=== PATIENT | male | born 1965 | race Caucasian/White ===

== ENCOUNTER → 2023-07-24 08:14 | Outpatient (REF) | payer BC, SELFPAY | LOC: HWRAD 08:14 | PROVIDERS: ATTENDING PHYSICIAN Otolaryngology; FAMILY PHYSICIAN Physician Assistant | DX: J32.0 Chronic maxillary sinusitis (principal) | CPT/HCPCS: 70486 ==

== ENCOUNTER → 2023-10-06 16:58 | Outpatient (REF) | payer BC, SELFPAY | LOC: CLAB 16:58 | PROVIDERS: ATTENDING PHYSICIAN Otolaryngology | DX: J01.90 Acute sinusitis, unspecified (principal) | CPT/HCPCS: 88304; 88311 ==

== ENCOUNTER 2024-01-05 05:47 | Emergency (ER) | payer BC, SELFPAY ==
[2024-01-05 05:48] VITALS: BP 122/70
--- NOTE | 2024-01-05 06:23 | ED.GENMED ---
History of Present Illness
General
Chief Complaint: DVT/Possible Blood Clot
Source: patient
Exam Limitations: none
Time Seen by Provider: 01/05/24 06:12
Nursing documentation reviewed up to this point in time: agreed with
History of Present Illness
History of Present Illness:
58-year-old male presents with left calf pain onset a few weeks ago he is in a garbage truck driver frequently, he does exercises and stretches his calf frequently has had a history of DVT and PE, no chest pain no shortness of breath, states when he had
his DVT and PE he had extensive workup told there was no cause for his blood work, had been on anticoagulation but stopped has chronic pain syndrome, uses oxycodone and Motrin, has chronic swelling of the left lower extremity compared to the right
took his pain meds today as scheduled
Past History
Past History
ED Past Medical History: Other (Chronic pain syndrome, osteoarthritis, low back pain DVT PE previous)
Social History
Tobacco: Non-smoker
Alcohol: None
Drug: None
Personal:
Living: with family
Employment: Employed
Review of Systems
Review of Systems
All Other Systems: Not applicable
Constitutional: Denies fever or fatigue
EENT: Reports no symptoms
Respiratory: Denies cough or trouble breathing
Cardiac: Denies chest pain
Musculoskeletal: Reports muscle stiffness and edema
Skin: Reports no symptoms
Phy Exam
Physical Exam
Physical Exam:
Physical Exam
General: no apparent distress, not acutely ill
Neck: No jaundice
Heart: s1/s2 regular rate and rhythm, no murmur. equal radial pulses.
Lungs: no acute respiratory distress. clear bilaterally
Abdomen: Nontender
Neuro: alert and oriented. no focal neurological deficits
Skin: no rash
Psychiatric: cooperative
Extremities: Slight edema left calf compared to right no cords,
Course
Orders/Labs/Results
Orders:
Orders
01/05/24 06:21
US Periph Venous LOWER Ext LT Urgent
Comment:
Reason For Exam: swelling
01/05/24 06:25
Complete Blood Count/With Diff Urgent
Comprehensive Metabolic Panel Urgent
Magnesium Urgent
01/05/24 08:03
Rivaroxaban [Xarelto] 15 mg PO NOW STA
Abnormal Lab Results
01/05/24
06:25
RBC 4.15 L 10^6/uL
(4.70-6.10)
Hct 38.3 L %
(39.0-52.0)
MCH 32.8 H pg
(27.0-31.0)
Monocytes % 9.8 H %
(1.7-9.3)
BUN 26 H mg/dl
(9-20)
Total Protein 6.2 L g/dl
(6.3-8.2)
01/05/24 06:25
01/05/24 06:25
Vital Signs
Initial and Last Documented VS:
Initial Vital Signs
Temp Pulse Resp BP Pulse Ox
98.1 F 66 22 122/70 100
01/05/24 05:48 01/05/24 05:48 01/05/24 05:48 01/05/24 05:48 01/05/24 05:48
Last Documented Vital Signs
Temp Pulse Resp BP Pulse Ox
98.1 F 66 22 122/70 100
01/05/24 05:48 01/05/24 05:48 01/05/24 05:48 01/05/24 05:48 01/05/24 05:48
MDM/Problems Addressed
Differential Diagnosis Includes:
DVT, electrolyte abnormality no signs of arterial insufficiency neuropathy is a possibility
MDM/Problems Addressed:
Left calf pain
Chronic conditions affecting care:
Left calf swelling prior DVT PE
Acute Exacerbation and/or Progression of Chronic Illness:
Prior DVT PE
*Radiology
Radiology exam reviewed: other ([facility] text report)
*Pulse Oximetry
Patient hypoxic: no
*Sales Mgr Interpretation
Rate: Sales Mgr- N/A
*Critical Care Note
Total Time (30-74mins, 75-104mins- exclusive of procedures): Not Applicable
Update Note
Update Note:
Update [facility] text radiology positive popliteal DVT
Discussed with patient he was on Xarelto previously,
Up-to-date reviewed, dosing reviewed patient told to limit his NSAID use
Previously seen at [facility]
ED Attending Note
-
Portions of this chart may have been created with voice recognition software.� Occasional wrong word or��sound alike� substitutions may have occurred due to the inherent limitations of voice recognition software.
Discharge Plan
Departure
Patient Disposition: Home (Routine Discharge)
Date of Disposition: 01/05/24
Time of Disposition: 08:04
Patient with high blood pressure during this ER visit?: No
Condition: Good
Discharge Problem:
DVT (deep venous thrombosis)
Instructions: Deep Vein Thrombosis (Blood Clots in the Legs) (DC)
Prescriptions:
No Action
alprazolam [Xanax] 0.5 mg Tablet
0.5 mg PO PRN PRN (Reason: anxiety)
Patient Comments:
pt says he sometimes takes 1/4 or 1/2 tablet, then can take another dose 6 hrs later if needed
escitalopram oxalate [Lexapro] 20 mg Tablet
30 mg PO DAILY
Referrals:
Samia Feldman PA-C [Family Provider] - Next open appointment
Naima Francis MD [Active] - Next open appointment
Interventions
Interventions:
*Risk Screen - Suicide Last Done: 01/05/24 05:48
*General Assessment Last Done: 01/05/24 06:26
*Neglect/Abuse Screening Last Done: 01/05/24 05:48
ED- Fall Risk Assessment Last Done: 01/05/24 06:34
*ED COVID-19 Vaccine History Last Done: 01/05/24 06:26
ED- Cardiac Assessment Last Done: 01/05/24 06:34
ED- Pulmonary Assessment Last Done: 01/05/24 06:34
ED-Peripheral Vascular Assessment Last Done: 01/05/24 06:34
ED-Skin Assessment Last Done: 01/05/24 06:34
Discharge Date and Time
Print Language: PASHTO
[2024-01-05 06:26] VITALS: BMI 31.6
--- NOTE | 2024-01-05 06:38 | EDRN ---
Pt has been having pain L lateral ankle up L lateral lower leg for 3 weeks. Pt says pain gets better during the day. 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 Pt has hx of dvts in same leg and PEs. Pt decided
to come in for evaluation this morning because he said the pain was excruciating. Pt denies cp, sob, fever/chills/cough.
[2024-01-05 06:39] LABS: % Basophils 0.5 % (0-2); % Eosinophils 1.9 % (0-6); % Immature Granulocytes 0.3 % (0-0.5); % Lymphocytes 24.2 % (20.5-51.1); % Monocytes 9.8 % (1.7-9.3); % Neutrophils 63.3 % (42.2-75.2); Absolute Eosinophils 0.1 10^3/uL (0-0.7); Absolute Lymphocytes 1.4 10^3/uL (1.2-3.4); Absolute Monocytes 0.6 10^3/uL (0.1-0.6); Absolute Neutrophils 3.7 10^3/uL (1.4-6.5); Hematocrit 38.3 % (39.0-52.0); Hemoglobin 13.6 g/dL (13.0-18.0); Mean Corp Hgb Conc. 35.5 g/dL (33.0-37.0); Mean Corpuscular Hgb 32.8 pg (27.0-31.0); Mean Corpuscular Volume 92.3 fL (80.0-94.0); Mean Platelet Volume 8.8 fL (7.4-10.4); Nucleated Red Blood Cells % 0 % (-); Platelet Count 167 10^3/uL (130-400); Red Blood Cell Count 4.15 10^6/uL (4.70-6.10); Red Cell Dist. Width 12.1 % (11.5-14.5); White Blood Cell Count 5.9 10^3/uL (4.8-10.8)
[2024-01-05 07:06] LABS: ALT (SGPT) 21 U/L (0-50); AST (SGOT) 30 U/L (17-59); Albumin 4.1 g/dl (3.5-5.0); Alkaline Phosphatase 53 U/L (38-126); Blood Urea Nitrogen 26 mg/dl (9-20); Calcium 9.2 mg/dl (8.4-10.2); Carbon Dioxide 29 mmol/L (22-30); Chloride 101 mmol/L (98-107); Estimated Creatinine Clearance 103 ml/min; Glucose 98 mg/dl (70-99); Magnesium 1.8 mg/dl (1.6-2.3); Potassium 4.1 mmol/L (3.5-5.1); Sodium 135 mmol/L (135-145); Total Bilirubin 0.5 mg/dl (0.2-1.3); Total Protein 6.2 g/dl (6.3-8.2); eGFR > 60.00
[2024-01-05] MEDS: XARELTO 15 MG PO (08:09)
== END 2024-01-05 08:12 | disposition home or self-care (01) ==
LOC: EMR 05:47
PROVIDERS: EMERGENCY PHYSICIAN Emergency Medicine; FAMILY PHYSICIAN Physician Assistant
DX: I82.432 Acute embolism and thrombosis of left popliteal vein (principal); Z86.711 Personal history of pulmonary embolism; Z86.718 Personal history of other venous thrombosis and embolism
CPT/HCPCS: 99284; 80053; 83735; 85025; 93971